=== PATIENT | female | born 1950 ===

== ENCOUNTER 2022-04-11 12:00 | Emergency (ER) | payer OTHER ==
[~2022-04-11] VITALS: Ht 142.2 cm; Wt 59.0 kg
[2022-04-11] MEDS ORDERED: COZAAR25 MG PO (12:41)
[2022-04-11] MEDS ORDERED: VASOTEC5 MG PO (12:42)
[2022-04-11] MEDS ORDERED: ADULT LOW DOSE81 M1 PO (12:42)
== END 2022-04-11 18:32 | disposition home or self-care (01) ==
LOC: ER 12:00
DX: I10 Essential (primary) hypertension (principal)